=== PATIENT | male | born 1975 | race Caucasian/White ===

== ENCOUNTER 2020-10-29 10:22 | Outpatient (REF) | payer MEDICAID, SELFPAY ==
--- NOTE | ~2020-10-29 | XR_ITS ---
EXAMINATION: XR KNEE, LEFT CLINICAL INFORMATION: Left knee pain. COMPARISON: None TECHNIQUE: Four views of the left knee. FINDINGS: There are severe degenerative changes in the lateral compartment with essentially complete loss of the normal joint space. There is mild subchondral bony sclerosis with associated marginal osteophytosis. Mild degenerative changes are present in the medial and patellofemoral compartments. There is a large joint effusion. No acute bony abnormality is seen. XR/XR knee LT 4V IMPRESSION: Degenerative changes as described most marked in the lateral compartment. Large joint effusion.
== END 2020-10-29 10:23 | disposition home or self-care (01) ==
LOC: HO.XRAY 10:22
PROVIDERS: PCP Internal Medicine Geriatric Medicine; Visit Provider Internal Medicine Geriatric Medicine
DX: M25.462 Effusion, left knee (principal); M25.562 Pain in left knee; R26.89 Other abnormalities of gait and mobility
CPT/HCPCS: 73564

== ENCOUNTER → 2020-12-21 09:16 | Outpatient (BNVA) | payer MEDICAID, SELFPAY | PROVIDERS: PCP Internal Medicine Geriatric Medicine; Visit Provider Orthopaedic Surgery | DX: M17.12 Unilateral primary osteoarthritis, left knee (principal) | CPT/HCPCS: 20610; 99202; J1040 ==

== ENCOUNTER 2021-07-12 11:40 | Emergency (ER) | payer MEDICAID, SELFPAY ==
--- NOTE | ~2021-07-12 | XR_ITS ---
EXAMINATION: XR CHEST CLINICAL INFORMATION: High blood sugar COMPARISON: Previous chest CT February 2014 TECHNIQUE: Frontal view of the chest was obtained. FINDINGS: No significant abnormality is noted involving the heart, lungs, mediastinum, bony thorax or soft tissues. XR/XR chest 1V IMPRESSION: Unremarkable examination.
[2021-07-12 12:21] VITALS: BP 126/76; PULSE 86; RESP 18; TEMP 36.3; O2SAT 95; BMI 31.8
[2021-07-12 12:39] LABS: Glucose, Whole Blood > 600 mg/dL (60-115)
[2021-07-12 12:39] LABS: Glucose, Whole Blood > 600 mg/dL (60-115)
[2021-07-12] MEDS: 0.9 % Sodium Chloride 1,000 ML 999 ML IVCONT ×2 (13:49→14:24)
[2021-07-12 13:53] LABS: MANUAL DIFF FLAG NO
[2021-07-12 13:57] LABS: Basophils Percent Auto 0.2 % (0-2); Eosinophils Percent Auto 0.2 % (0-4); Hematocrit 38.9 % (42-52); Imm Gran Abs Auto 0.01 X10*3/uL (0.00-0.03); Imm Gran Pct Auto 0.2 % (0.0-0.4); Lymphocytes Absolute Auto 1.5 X10*3/uL (1.2-4.9); Lymphocytes Percent Auto 34.1 % (20-40); Mean Corpuscular HGB Conc 33.4 g/dl (31.0-36.0); Mean Corpuscular Hemoglobin 28.3 pg (27.0-33.0); Mean Corpuscular Volume 84.7 fL (80-98); Monocytes Absolute Auto 0.3 X10*3/uL (0.1-1.2); Monocytes Percent Auto 7.1 % (2-11); Neutrophils Absolute Auto 2.6 X10*3/uL (2.0-8.3); Neutrophils Percent Auto 58.2 % (45-73); Red Blood Count 4.59 X10*6/uL (4.60-5.80); Red Cell Distribution Width 14.4 % (11.0-16.0); White Blood Count 4.5 X10*3/uL (4.8-10.8)
[2021-07-12 14:22] LABS: Alanine Aminotransferase 112 U/L (0-40); Albumin Level 4.3 g/dL (3.5-5.0); Alkaline Phosphatase 215 U/L (39-117); Anion Gap 18 (12-20); Aspartate Amino Transferase 56 U/L (5-37); Bilirubin Direct 0.4 mg/dL (0.0-0.5); Bilirubin Total 1.1 mg/dL (0.0-1.0); Blood Urea Nitrogen 13 mg/dL (9-16); Calcium 9.7 mg/dL (8.4-10.2); Carbon Dioxide 29 mmol/L (22-29); Chloride 86 mmol/L (96-108); Creatinine Clr Calc Pharmacy 70.5; Estimated Glomerular Filt Rate 49; Glucose Random 664 mg/dL (60-115); Lipase 23 U/L (8-78); Potassium 4.1 mmol/L (3.3-5.1); Sodium 129 mmol/L (135-145); Total Protein 8.5 g/dL (6.5-8.0)
[2021-07-12] MEDS: Insulin Regular, Human 100 UNIT/ML 3 ML VIAL 10 UNIT IVPUSH ×2 (14:25→15:08)
[2021-07-12 14:28] LABS: Mean Platelet Volume 10.8 fL (9.4-12.4); Platelet Count 76 X10*3/uL (160-400)
[2021-07-12 14:30] VITALS: BP 126/80; PULSE 80; RESP 16; O2SAT 96
[2021-07-12 14:57] LABS: Glucose, Whole Blood 448 mg/dL (60-115)
--- NOTE | 2021-07-12 15:02 | ED.GENADULT ---
HPI - General Adult General Chief complaint: General Medical Stated complaint: hbs Time Seen by Provider: 07/12/21 13:28 Source: patient Mode of arrival: ambulatory Limitations: no limitations History of Present Illness HPI narrative: 46-year-old male walked into the emergency department from PCP's office for evaluation of high blood sugar. Patient is known type 2 diabetes not compliant with his medication for sometimes, been evaluated by his PCP for generalized weakness, polyuria, polydipsia, blurry vision. Patient found to have high blood sugar at the PCPs office and sent to the ED for further evaluation. Patient otherwise decline fever, chills, chest pain, abdominal pain, nausea, or vomiting. Patient admitted that he is not compliant with his medication, unaware of his medication. Related Data Home Medications Medication Instructions Recorded Confirmed buprenorphine 4 mg-naloxone 1 mg 1 film SUBLINGUAL DAILY 12/21/20 sublingual film (Suboxone) Previous Rx's Medication Instructions Recorded metformin 1,000 mg tablet 1,000 mg PO BID #60 tab 07/12/21 Allergies Allergy/AdvReac Type Severity Reaction Status Date / Time No Known Allergies Allergy Verified 07/12/21 12:20 Review of Systems Review of Systems: All other systems are reviewed and are negative Constitutional: Reports as per HPI and Reports no additional constitutional complaints Eyes: Reports as per HPI and Reports no additional eye complaints Reports system reviewed and no additional complaints, except as documented Cardiovascular: Reports as per HPI and Reports no additional cardiovascular complaints Respiratory: Reports as per HPI and Reports no additional respiratory complaints Gastrointestinal: Reports as per HPI and Reports no additional gastrointestinal complaints Genitourinary: Reports no additional female genitourinary complaints Musculoskeletal: Reports no additional musculoskeletal complaints Skin/Breast: Reports system reviewed and no additional complaints, except as docu Psychiatric: Reports no additional psychiatric complaints Endocrine: Reports no additional endocrine complaints Hematologic/Lymphatic: Reports no additional hematologic/lymphatic complaints Allergic/Immunologic: Reports no additional allergic/immunologic complaints Reports system reviewed and no additional complaints, except as documented and Reports Abnormal speech present [facility] Social History Social History Advance Directives: No Current occupational status: unemployed Current occupation: right handed. Physical Exam Vital Signs: Vital Signs: Last Vital Signs Temp 97.3 F 07/12/21 12:21 Pulse 80 07/12/21 14:30 Resp 16 07/12/21 14:30 BP 126/80 07/12/21 14:30 Pulse Ox 96 07/12/21 14:30 Body Mass Index 31.8 Vital signs have been reviewed as appeared to be correct. Blood pressure normal. Heart rate normal. Respiration rate normal. Temperature normal. Oxygen saturation normal. Appearance: Alert. Oriented X3. No acute distress. Head: Normal external exam. Normocephalic. Atraumatic. No Nj signs noted. No raccoon eyes noted Eyes: PERRLA. EOMI. Conjunctiva and sclera normal. Eyelids normal. ENT: TM's Normal. Pharynx normal. Uvula midline. Dry mucous membranes. No trismus noted. No drooling noted. No muffled voice noted. Neck: Normal inspection. Neck supple. FROM. No adenopathy. Thyroid Normal. No meningeal signs. No neck mass noted. CVS: Normal heart rate and rhythm. Heart sound normal. No murmurs noted. Pulses normal throughout. Respiratory: No respiratory distress. Painless inspiration. Breath sounds normal. No wheezes/rales/rhonchi noted. Chest nontender. No accessory muscle usage noted or decreased air movement noted. Abdomen: Soft and nontender. Bowel sounds normal in all 4 quadrants. No distention noted. No organomegaly noted. No visible injury noted. Back: No CVA tenderness. Full range of motion noted. Skin: Skin warm and dry. Normal skin color. Normal skin turgor. No rashes/lesions/lacerations noted. Extremities: No lower extremity edema. Extremities exhibit normal range of motion. Extremities nontender. Neuro: Oriented X 3. Cranial nerve exam: II-XII are grossly intact No motor deficit. No sensory deficit. Reflexes normal. Course Course Course Narrative: Assessment and plan. 46-year-old male with known type 2 diabetes who is not compliant with his medication, came from his PCP office for hyperglycemia, no sign of infection, will start the patient on metformin 1000 mg b.i.d., patient will need further outpatient evaluation by his PCP. The patient was instructed to drink plenty of fluid and take his diabetes medication. Reevaluation(s) Reevaluation #1: BS is 306 after hydration and insulin. plan is to d/c, start on metformin, follow up with pcp. Time: 15:50 Medical Decision Making Lab Data Lab results reviewed: Yes I reviewed the patient's lab results. Result diagrams: 07/12/21 13:48 07/12/21 13:48 Labs: Lab Results 07/12/21 07/12/21 07/12/21 Range/Units 12:27 12:30 13:48 WBC 4.5 L (4.8-10.8) X10*3/uL RBC 4.59 L (4.60-5.80) X10*6/uL Hgb 13.0 L (14.0-18.0) g/dl Hct 38.9 L (42-52) % MCV 84.7 (80-98) fL MCH 28.3 (27.0-33.0) pg MCHC 33.4 (31.0-36.0) g/dl RDW 14.4 (11.0-16.0) % Plt Count 76 L (160-400) X10*3/uL MPV 10.8 (9.4-12.4) fL Immature Gran % (Auto) 0.2 (0.0-0.4) % Neut % (Auto) 58.2 (45-73) % Lymph % (Auto) 34.1 (20-40) % [place] % (Auto) 7.1 (2-11) % Eos % (Auto) 0.2 (0-4) % Baso % (Auto) 0.2 (0-2) % Lymph # (Auto) 1.5 (1.2-4.9) X10*3/uL [place] # (Auto) 0.3 (0.1-1.2) X10*3/uL Eos # (Auto) 0.0 (0.0-0.4) X10*3/uL Baso # (Auto) 0.0 (0.0-0.2) X10*3/uL Abs Immat Gran (auto) 0.01 (0.00-0.03) X10*3/uL Absolute Neuts (auto) 2.6 (2.0-8.3) X10*3/uL Absolute Nucleated RBC 0.000 (0.0-0.012) X10*3/uL Nucleated RBC % (auto) 0.0 (0.0-0.2) /100WBC Sodium (135-145) mmol/L Potassium (3.3-5.1) mmol/L Chloride (96-108) mmol/L Carbon Dioxide (22-29) mmol/L Anion Gap (12-20) BUN (9-16) mg/dL Creatinine (0.5-1.4) mg/dL Estim Creat Clear Calc Estimated GFR POC Glucose > 600 H* > 600 H* (60-115) mg/dL Random Glucose (60-115) mg/dL Calcium (8.4-10.2) mg/dL Total Bilirubin (0.0-1.0) mg/dL Direct Bilirubin (0.0-0.5) mg/dL AST (5-37) U/L ALT (0-40) U/L Alkaline Phosphatase (39-117) U/L Total Protein (6.5-8.0) g/dL Albumin (3.5-5.0) g/dL Lipase (8-78) U/L Urine Color Urine Appearance Urine pH (5.0-8.0) Ur Specific [place] (1.005-1.025) Urine Protein (NEG-TRACE) MG/DL Urine Glucose (UA) (NEG) MG/DL Urine Ketones (NEG) MG/DL Urine Blood (NEG) Urine Nitrite (NEG) Ur Leukocyte Esterase (NEG) 07/12/21 07/12/21 07/12/21 Range/Units 13:48 14:50 15:31 WBC (4.8-10.8) X10*3/uL RBC (4.60-5.80) X10*6/uL Hgb (14.0-18.0) g/dl Hct (42-52) % MCV (80-98) fL MCH (27.0-33.0) pg MCHC (31.0-36.0) g/dl RDW (11.0-16.0) % Plt Count (160-400) X10*3/uL MPV (9.4-12.4) fL Immature Gran % (Auto) (0.0-0.4) % Neut % (Auto) (45-73) % Lymph % (Auto) (20-40) % [place] % (Auto) (2-11) % Eos % (Auto) (0-4) % Baso % (Auto) (0-2) % Lymph # (Auto) (1.2-4.9) X10*3/uL [place] # (Auto) (0.1-1.2) X10*3/uL Eos # (Auto) (0.0-0.4) X10*3/uL Baso # (Auto) (0.0-0.2) X10*3/uL Abs Immat Gran (auto) (0.00-0.03) X10*3/uL Absolute Neuts (auto) (2.0-8.3) X10*3/uL Absolute Nucleated RBC (0.0-0.012) X10*3/uL Nucleated RBC % (auto) (0.0-0.2) /100WBC Sodium 129 L (135-145) mmol/L Potassium 4.1 (3.3-5.1) mmol/L Chloride 86 L (96-108) mmol/L Carbon Dioxide 29 (22-29) mmol/L Anion Gap 18 (12-20) BUN 13 (9-16) mg/dL Creatinine 1.54 H (0.5-1.4) mg/dL Estim Creat Clear Calc 70.5 Estimated GFR 49 POC Glucose 448 H* (60-115) mg/dL Random Glucose 664 H* (60-115) mg/dL Calcium 9.7 (8.4-10.2) mg/dL Total Bilirubin 1.1 H (0.0-1.0) mg/dL Direct Bilirubin 0.4 (0.0-0.5) mg/dL AST 56 H (5-37) U/L ALT 112 H (0-40) U/L Alkaline Phosphatase 215 H (39-117) U/L Total Protein 8.5 H (6.5-8.0) g/dL Albumin 4.3 (3.5-5.0) g/dL Lipase 23 (8-78) U/L Urine Color YELLOW Urine Appearance CLEAR Urine pH 5.5 (5.0-8.0) Ur Specific [place] 1.010 (1.005-1.025) Urine Protein NEG (NEG-TRACE) MG/DL Urine Glucose (UA) >=1000 H (NEG) MG/DL Urine Ketones 40 (NEG) MG/DL Urine Blood NEG (NEG) Urine Nitrite NEG (NEG) Ur Leukocyte Esterase NEG (NEG) 07/12/21 Range/Units 15:44 WBC (4.8-10.8) X10*3/uL RBC (4.60-5.80) X10*6/uL Hgb (14.0-18.0) g/dl Hct (42-52) % MCV (80-98) fL MCH (27.0-33.0) pg MCHC (31.0-36.0) g/dl RDW (11.0-16.0) % Plt Count (160-400) X10*3/uL MPV (9.4-12.4) fL Immature Gran % (Auto) (0.0-0.4) % Neut % (Auto) (45-73) % Lymph % (Auto) (20-40) % [place] % (Auto) (2-11) % Eos % (Auto) (0-4) % Baso % (Auto) (0-2) % Lymph # (Auto) (1.2-4.9) X10*3/uL [place] # (Auto) (0.1-1.2) X10*3/uL Eos # (Auto) (0.0-0.4) X10*3/uL Baso # (Auto) (0.0-0.2) X10*3/uL Abs Immat Gran (auto) (0.00-0.03) X10*3/uL Absolute Neuts (auto) (2.0-8.3) X10*3/uL Absolute Nucleated RBC (0.0-0.012) X10*3/uL Nucleated RBC % (auto) (0.0-0.2) /100WBC Sodium (135-145) mmol/L Potassium (3.3-5.1) mmol/L Chloride (96-108) mmol/L Carbon Dioxide (22-29) mmol/L Anion Gap (12-20) BUN (9-16) mg/dL Creatinine (0.5-1.4) mg/dL Estim Creat Clear Calc Estimated GFR POC Glucose 307 H (60-115) mg/dL Random Glucose (60-115) mg/dL Calcium (8.4-10.2) mg/dL Total Bilirubin (0.0-1.0) mg/dL Direct Bilirubin (0.0-0.5) mg/dL AST (5-37) U/L ALT (0-40) U/L Alkaline Phosphatase (39-117) U/L Total Protein (6.5-8.0) g/dL Albumin (3.5-5.0) g/dL Lipase (8-78) U/L Urine Color Urine Appearance Urine pH (5.0-8.0) Ur Specific [place] (1.005-1.025) Urine Protein (NEG-TRACE) MG/DL Urine Glucose (UA) (NEG) MG/DL Urine Ketones (NEG) MG/DL Urine Blood (NEG) Urine Nitrite (NEG) Ur Leukocyte Esterase (NEG) Discharge Plan Discharge Clinical Impression: Hyperglycemia due to type 2 diabetes mellitus Qualifiers: Diabetes mellitus superintendent terminal insulin use: without longterm use Qualified Code(s): E11.65 - Type 2 diabetes mellitus with hyperglycemia Patient Disposition: Home, Self-Care Instructions: Diabetic Hyperglycemia (ED) Prescriptions: New metformin 1,000 mg tablet 1,000 mg PO BID Qty: 60 RF: 0 Referrals: Name,MD Nima [Primary Care Provider] - 2 days
[2021-07-12 15:37] LABS: Appearance Urine CLEAR; Color Urine YELLOW; Glucose Urine UA >=1000 MG/DL (NEG); Leukocyte Esterase Urine NEG (NEG); Nitrite Urine NEG (NEG); PH 5.5 (5.0-8.0); Urine Blood NEG (NEG); Urine Ketones 40 MG/DL (NEG); Urine Protein NEG (NEG-TRACE)
[2021-07-12 15:49] LABS: Glucose, Whole Blood 307 mg/dL (60-115)
[2021-07-12 15:52] LABS: RBC Urine 0 /HPF (0); WBC Urine 0 /HPF (0-4)
== END 2021-07-12 15:57 | disposition home or self-care (01) ==
PROVIDERS: Emergency Provider Emergency Medicine; PCP Internal Medicine Geriatric Medicine
DX: E11.65 Type 2 diabetes mellitus with hyperglycemia (principal); Z91.14 Patient's other noncompliance with medication regimen
CPT/HCPCS: 36415; 71045; 80048; 80076; 81001; 82947; 83690; 85025; 96361; 96374; 96376; 99284

== ENCOUNTER 2021-08-11 09:30 | Emergency (ER) | payer MEDICAID, SELFPAY ==
[2021-08-11 09:38] VITALS: BP 128/83; PULSE 80; RESP 16; TEMP 36.6; O2SAT 97; BMI 32.2
--- NOTE | 2021-08-11 11:08 | ED_ITS ---
HPI - General Adult General Chief complaint: General Medical Stated complaint: high blood sugar Time Seen by Provider: 08/11/21 11:15 Source: patient Mode of arrival: ambulatory Limitations: no limitations History of Present Illness HPI narrative: 46-year-old male presents to ED for hyperglycemia. Patient states history of diabetes only taking metformin. Patient states for the past 2 days glucose has been over 500 with blurry vision and this morning it was over 490. Patient states polydipsia with polyuria. Patient denies any chest pain, shortness of breath, weakness, or dizziness. Patient states presently he has a yeast infection. Patient states she is compliant with his meds which is only metformin. Related Data Home Medications Medication Instructions Recorded Confirmed buprenorphine 4 mg-naloxone 1 mg 1 film SUBLINGUAL DAILY 12/21/20 sublingual film (Suboxone) Previous Rx's Medication Instructions Recorded metformin 1,000 mg tablet 1,000 mg PO BID #60 tab 07/12/21 metformin 1,000 mg tablet 1,000 mg PO BID 5 Days #10 tab 08/11/21 nitrofurantoin 100 mg PO Q12H 7 Days #14 cap 08/11/21 monohydrate/macrocrystals 100 mg capsule (Macrobid) Allergies Allergy/AdvReac Type Severity Reaction Status Date / Time No Known Allergies Allergy Verified 07/12/21 12:20 Review of Systems Review of Systems: Yes all other systems are reviewed and are negative Constitutional: Constitutional: Reports as per HPI and Reports no additional constitutional complaints Eyes: Eyes: Reports as per HPI and Reports no additional eye complaints Comments: Blurry vision ENT: Reports system reviewed and no additional complaints, except as documented and Reports as per HPI Cardiovascular: Cardiovascular: Reports as per HPI and Reports no additional cardiovascular complaints Respiratory: Respiratory: Reports as per HPI and Reports no additional respiratory complaints Gastrointestinal: Gastrointestinal: Reports as per HPI and Reports no additional gastrointestinal complaints Genitourinary: Genitourinary: Reports no additional male genitourinary complaints and Reports as per HPI Musculoskeletal: Musculoskeletal: Reports no additional musculoskeletal complaints and Reports as per HPI Integumentary/Breasts: Skin/Breast: Reports system reviewed and no additional complaints, except as docu and Reports as per HPI Neurologic: Reports system reviewed and no additional complaints, except as documented and Reports as per HPI Psychiatric: Psychiatric: Reports no additional psychiatric complaints and Reports as per HPI [facility] Past Medical History Medical History (Updated 08/11/21 @ 13:59 by MINGO Angela) Diabetes Social History Social History Advance Directives: No Current occupational status: unemployed Current occupation: right handed. Physical Exam Vital Signs: Vital Signs: Last Vital Signs Temp 98 F 08/11/21 09:38 Pulse 80 08/11/21 09:38 Resp 16 08/11/21 09:38 BP 128/83 08/11/21 09:38 Pulse Ox 97 08/11/21 09:38 Body Mass Index 32.2 Const: General: cooperative, healthy appearing, comfortable, no acute distress, well developed, alert, awake and Physically active; No acute distress Orientation/consciousness: patient oriented x3 HENMT: Head: Yes normal to inspection, Yes No palpable skull fracture present, Yes normocephalic, Yes atraumatic, No abrasion, No Acrocyanosis present, No Nj's sign, No contusion, No cranial bruits, No hematoma, No laceration, No occipital foramen tenderness, No palpable skull fracture, No raccoon eyes, No scalp lesion, No scalp tenderness, No Temporal artery tenderness present and No periorbital ecchymosis Eyes: General: appearance normal, both eyes and all related structures Neck: Neck: Yes normal visual inspection, Yes full ROM, Yes no lymphadenopathy, Yes no meningeal signs, Yes trachea midline, Yes supple, No anterior neck swelling and No tender Chest: Chest palpation & inspection: normal inspection of the chest and normal palpation of entire chest wall Resp: Effort & Inspection: normal respiratory effort and able to speak in complete sentences Auscultation: clear to auscultation bilaterally Cardio: Jugular venous distension: no JVD Heart sounds: S1 normal heart sound present and S2 normal heart sound present GI: Inspection: Yes normal to inspection and No abdominal wall ecchymosis Palpation (GI): Soft to palpation, not firm, nontender, no guarding and not rigid : General: No CVA tenderness and Yes no CVA tenderness Back/Spine/Pelvis: Back: no CVA tenderness, No CVA tenderness and No back tenderness Skin: General skin exam: no rashes or lesions noted and elasticity normal Neuro: General: patient oriented x3, no meningeal signs and CN's II-XI intact bilaterally Cranial nerves: Yes CN's II-XII intact bilaterally Extrem: General: Yes normal to inspection and Yes full ROM Psych: Appearance: grossly normal, well kempt and not disheveled Course Course Course Narrative: Patient will have labs drawn. Repeats p.o.C is 390 will order fluids. Will do labs to see patients in DKA. Patient is not any distress Reevaluation(s) Reevaluation #1: Patient is not in DKA. Patient's UA shows UTI. Patient is glucose resolved without any insulin. Hyperglycemia improved with fluids. 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 Or his primary care provider could add new meds. Patient is safe for discharge Time: 13:55 Medical Decision Making MDM Narrative Medical decision making narrative: Hyperglycemia Lab Data Result diagrams: 08/11/21 11:31 08/11/21 11:31 Labs: Lab Results 08/11/21 08/11/21 08/11/21 Range/Units 11:09 11:31 11:31 WBC 3.7 L (4.8-10.8) X10*3/uL RBC 4.45 L (4.60-5.80) X10*6/uL Hgb 12.9 L (14.0-18.0) g/dl Hct 38.0 L (42.0-52.0) % MCV 85.4 (80.0-98.0) fL MCH 29.0 (27.0-33.0) pg MCHC 33.9 (31.0-36.0) g/dl RDW 12.9 (11.0-16.0) % Plt Count 79 L (160-400) X10*3/uL MPV 11.2 (9.4-12.4) fL Immature Gran % (Auto) 0.3 (0.0-0.4) % Neut % (Auto) 58.0 (45-73) % Lymph % (Auto) 33.3 (20-40) % [place] % (Auto) 7.3 (2-11) % Eos % (Auto) 0.8 (0-4) % Baso % (Auto) 0.3 (0-2) % Lymph # (Auto) 1.2 (1.2-4.9) X10*3/uL [place] # (Auto) 0.3 (0.1-1.2) X10*3/uL Eos # (Auto) 0.0 (0.0-0.4) X10*3/uL Baso # (Auto) 0.0 (0.0-0.2) X10*3/uL Abs Immat Gran (auto) 0.01 (0.00-0.03) X10*3/uL Absolute Neuts (auto) 2.1 (2.0-8.3) x10*3/uL Absolute Nucleated RBC 0.000 (0.0-0.012) X10*3/uL Nucleated RBC % (auto) 0.0 (0.0-0.2) /100WBC Sodium 135 (135-145) mmol/L Potassium 4.5 (3.3-5.1) mmol/L Chloride 101 (96-108) mmol/L Carbon Dioxide 24 (22-29) mmol/L Anion Gap 15 (12-20) BUN 14 (9-16) mg/dL Creatinine 0.95 (0.5-1.4) mg/dL Estim Creat Clear Calc 115.0 Estimated GFR > 60 POC Glucose 340 H (60-115) mg/dL Random Glucose 376 H* (60-115) mg/dL Calcium 9.3 (8.4-10.2) mg/dL Total Bilirubin 0.7 (0.0-1.0) mg/dL AST 50 H (5-37) U/L ALT 98 H (0-40) U/L Alkaline Phosphatase 162 H D (39-117) U/L Total Protein 8.4 H (6.5-8.0) g/dL Albumin 4.2 (3.5-5.0) g/dL Urine Color Urine Appearance Urine pH (5.0-8.0) Ur Specific [place] (1.005-1.025) Urine Protein (NEG-TRACE) MG/DL Urine Glucose (UA) (NEG) MG/DL Urine Ketones (NEG) MG/DL Urine Blood (NEG) Urine Nitrite (NEG) Ur Leukocyte Esterase (NEG) Urine RBC (0) /HPF Urine WBC (0-4) /HPF Ur Squamous Epith Cells /LPF Urine Bacteria /LPF Acetone, Qual Negative (Negative) 08/11/21 08/11/21 Range/Units 12:11 13:29 WBC (4.8-10.8) X10*3/uL RBC (4.60-5.80) X10*6/uL Hgb (14.0-18.0) g/dl Hct (42.0-52.0) % MCV (80.0-98.0) fL MCH (27.0-33.0) pg MCHC (31.0-36.0) g/dl RDW (11.0-16.0) % Plt Count (160-400) X10*3/uL MPV (9.4-12.4) fL Immature Gran % (Auto) (0.0-0.4) % Neut % (Auto) (45-73) % Lymph % (Auto) (20-40) % [place] % (Auto) (2-11) % Eos % (Auto) (0-4) % Baso % (Auto) (0-2) % Lymph # (Auto) (1.2-4.9) X10*3/uL [place] # (Auto) (0.1-1.2) X10*3/uL Eos # (Auto) (0.0-0.4) X10*3/uL Baso # (Auto) (0.0-0.2) X10*3/uL Abs Immat Gran (auto) (0.00-0.03) X10*3/uL Absolute Neuts (auto) (2.0-8.3) x10*3/uL Absolute Nucleated RBC (0.0-0.012) X10*3/uL Nucleated RBC % (auto) (0.0-0.2) /100WBC Sodium (135-145) mmol/L Potassium (3.3-5.1) mmol/L Chloride (96-108) mmol/L Carbon Dioxide (22-29) mmol/L Anion Gap (12-20) BUN (9-16) mg/dL Creatinine (0.5-1.4) mg/dL Estim Creat Clear Calc Estimated GFR POC Glucose 289 H (60-115) mg/dL Random Glucose (60-115) mg/dL Calcium (8.4-10.2) mg/dL Total Bilirubin (0.0-1.0) mg/dL AST (5-37) U/L ALT (0-40) U/L Alkaline Phosphatase (39-117) U/L Total Protein (6.5-8.0) g/dL Albumin (3.5-5.0) g/dL Urine Color YELLOW Urine Appearance HAZY Urine pH 5.5 (5.0-8.0) Ur Specific [place] 1.025 (1.005-1.025) Urine Protein TRACE (NEG-TRACE) MG/DL Urine Glucose (UA) >=1000 H (NEG) MG/DL Urine Ketones NEG (NEG) MG/DL Urine Blood TRACE (NEG) Urine Nitrite NEG (NEG) Ur Leukocyte Esterase NEG (NEG) Urine RBC 5-9 H (0) /HPF Urine WBC 10-14 H (0-4) /HPF Ur Squamous Epith Cells 1+ /LPF Urine Bacteria 1+ /LPF Acetone, Qual (Negative) Discharge Plan Discharge Clinical Impression: Hyperglycemia due to type 2 diabetes mellitus, Acute UTI Patient Disposition: Home, Self-Care Instructions: Urinary Tract Infection in Men (ED), Diabetic Hyperglycemia (ED) Additional Instructions: Please follow-up with your primary care provider for adjustment of the medication or referral to endocrinology. Her urine shows urinary tract infection. She will be discharged with antibiotics. Return to the ED for any abdominal pain, nausea, vomiting, fever, chills, hematuria, flank pain, increased thirst, increased urinary frequency, chest pain, shortness of breath, dizziness, or any other concerning symptoms. Prescriptions: New nitrofurantoin monohyd/m-cryst [Macrobid] 100 mg capsule 100 mg PO Q12H 7 Days Qty: 14 RF: 0 metformin 1,000 mg tablet 1,000 mg PO BID 5 Days Qty: 10 RF: 0 No Action metformin 1,000 mg tablet 1,000 mg PO BID Qty: 60 RF: 0 Stand Alone Forms: Work/School Release Discharge Date/Time: 08/11/21 14:15 Print Language: Monegasque
[2021-08-11 11:13] LABS: Glucose, Whole Blood 340 mg/dL (60-115)
[2021-08-11] MEDS: 0.9 % Sodium Chloride 1,000 ML 999 ML IV ×2 (11:33)
[2021-08-11 11:37] LABS: MANUAL DIFF FLAG NO
[2021-08-11 11:40] LABS: Basophils Percent Auto 0.3 % (0-2); Eosinophils Percent Auto 0.8 % (0-4); Hemoglobin 12.9 g/dl (14.0-18.0); Imm Gran Abs Auto 0.01 X10*3/uL (0.00-0.03); Imm Gran Pct Auto 0.3 % (0.0-0.4); Lymphocytes Absolute Auto 1.2 X10*3/uL (1.2-4.9); Lymphocytes Percent Auto 33.3 % (20-40); Mean Corpuscular HGB Conc 33.9 g/dl (31.0-36.0); Mean Corpuscular Volume 85.4 fL (80.0-98.0); Mean Platelet Volume 11.2 fL (9.4-12.4); Monocytes Absolute Auto 0.3 X10*3/uL (0.1-1.2); Monocytes Percent Auto 7.3 % (2-11); Neutrophils Absolute Auto 2.1 x10*3/uL (2.0-8.3); Platelet Count 79 X10*3/uL (160-400); Red Blood Count 4.45 X10*6/uL (4.60-5.80); Red Cell Distribution Width 12.9 % (11.0-16.0); White Blood Count 3.7 X10*3/uL (4.8-10.8)
[2021-08-11 11:57] LABS: Alanine Aminotransferase 98 U/L (0-40); Albumin Level 4.2 g/dL (3.5-5.0); Alkaline Phosphatase 162 U/L (39-117); Anion Gap 15 (12-20); Aspartate Amino Transferase 50 U/L (5-37); Bilirubin Total 0.7 mg/dL (0.0-1.0); Blood Urea Nitrogen 14 mg/dL (9-16); Calcium 9.3 mg/dL (8.4-10.2); Carbon Dioxide 24 mmol/L (22-29); Chloride 101 mmol/L (96-108); Estimated Glomerular Filt Rate > 60; Glucose Random 376 mg/dL (60-115); Potassium 4.5 mmol/L (3.3-5.1); Sodium 135 mmol/L (135-145); Total Protein 8.4 g/dL (6.5-8.0)
[2021-08-11 12:28] LABS: Acetone, serum QL Negative (Negative)
[2021-08-11 12:30] LABS: Appearance Urine HAZY; Color Urine YELLOW; Glucose Urine UA >=1000 MG/DL (NEG); Leukocyte Esterase Urine NEG (NEG); Nitrite Urine NEG (NEG); PH 5.5 (5.0-8.0); Specific Gravity - Urine 1.025 (1.005-1.025); UACC Culture Trigger NO; Urine Blood TRACE (NEG); Urine Ketones NEG (NEG); Urine Protein TRACE MG/DL (NEG-TRACE)
[2021-08-11 13:04] LABS: Bacteria Urine 1+ /LPF; Squamous Epithelial Cell Urine 1+ /LPF; UACC CULT YES
[2021-08-11 13:33] LABS: Glucose, Whole Blood 289 mg/dL (60-115)
== END 2021-08-11 14:15 | disposition home or self-care (01) ==
PROVIDERS: Physician Assistant; Emergency Provider Emergency Medicine; PCP Internal Medicine Geriatric Medicine
DX: E11.65 Type 2 diabetes mellitus with hyperglycemia (principal); N39.0 Urinary tract infection, site not specified
CPT/HCPCS: 36415; 80053; 81001; 82009; 82947; 85025; 87086; 87088; 96360; 99283; 99284

== ENCOUNTER 2021-11-29 11:45 | Emergency (ER) | payer MEDICAID, SELFPAY ==
[2021-11-29 12:01] VITALS: BP 102/59; PULSE 72; RESP 18; TEMP 37; O2SAT 98; BMI 35.5
--- NOTE | 2021-11-29 12:15 | ED.SKABFB ---
HPI - Skin/Abscess/Foreign Bdy General Chief complaint: Skin/Abscess/Foreign Body Stated complaint: abscess Time Seen by Provider: 11/29/21 12:15 Source: patient and family Mode of arrival: ambulatory Limitations: no limitations History of Present Illness HPI narrative: 46 y/o male presenting to the ER with an abscess to the left calf for the last 5 days. He reports the area has been becoming larger and more painful. He thinks he may have gotten bit by a spider but he is not sure. He woke up with the small area of redness and tenderness 5 days ago and has been getting bigger and more painful signs. He has not tried to drain any infection from the area. He denies any fever or chills. He is diabetic and reports his sugars have been well controlled. MD complaint: abscess/boil Onset (ago): day(s) (5) Tetanus up to date: yes Severity: moderate Severity scale (1-10): 6 Quality: aching Pain Consistency: constant Relieving factors: immobilization Exacerbating factors: palpation and movement Context: none Associated symptoms: denies other symptoms Treatments prior to arrival: none Related Data Home Medications Medication Instructions Recorded Confirmed buprenorphine 4 mg-naloxone 1 mg 1 film SUBLINGUAL DAILY 12/21/20 sublingual film (Suboxone) Previous Rx's Medication Instructions Recorded metformin 1,000 mg tablet 1,000 mg PO BID #60 tab 07/12/21 metformin 1,000 mg tablet 1,000 mg PO BID 5 Days #10 tab 08/11/21 nitrofurantoin 100 mg PO Q12H 7 Days #14 cap 08/11/21 monohydrate/macrocrystals 100 mg capsule (Macrobid) cephalexin 500 mg capsule 500 mg PO QID 5 Days #20 cap 11/29/21 doxycycline hyclate 100 mg tablet 100 mg PO BID #10 tab 11/29/21 Allergies Allergy/AdvReac Type Severity Reaction Status Date / Time No Known Allergies Allergy Verified 07/12/21 12:20 Review of Systems Review of Systems: Constitutional: No Fever, No Chills ENT/Mouth: No sore throat Cardiovascular: No Chest Pain, No SOB Gastrointestinal: No Nausea, No Vomiting Musculoskeletal: No joint pain, + Myalgias Skin: + Skin Lesions, No rash Neuro: No Weakness, No Numbness Psych: + Anxiety/Panic, No Depression Heme/Lymph: No Bruising, No Lymphadenopathy PMFSH Past Medical History Medical History (Updated 11/29/21 @ 12:50 by MINGO Haynes) Diabetes Social History Social History Advance Directives: No Advance Directives Information Provided: Yes Current occupational status: unemployed Current occupation: right handed. Physical Exam Vital Signs: Vital Signs: Last Vital Signs Temp 98.6 F 11/29/21 12:01 Pulse 72 11/29/21 12:01 Resp 18 11/29/21 12:01 BP 102/59 L 11/29/21 12:01 Pulse Ox 98 11/29/21 12:01 BMI result Body Mass Index 35.5 Appearance: Alert. Oriented X3. No acute distress. Nontoxic HEENT: normal inspection CVS: Normal heart rate and rhythm. Pulses normal. Respiratory: No respiratory distress. Skin: Skin warm and dry. Normal skin color. Normal skin turgor. No rashes. Extremities: left proximal lower leg with a 3cm ovoid area of swelling, fluctance and tenderness, surrounded by erythema extending to the knee superiorly and mid-calf distally. NV intact disally. No bullseye rash. No calf tenderness or swelling Neuro: Oriented X 3. nonfocal, steady gait Course Course Course Narrative: 46-year-old male presents the ER with worsening abscess to the left calf for the last 5 days. He is unsure cause question spider bite. On examination the area is warm, red, fluctuant, amenable to incision and drainage. Patient is in agreement. Reevaluation(s) Reevaluation #1: I&D performed, mild bleeding afterward. Sterile dressing applied. Wound care discussed with patient and his girlfriend. Will prescribe double coverage antibiotics. Signs and symptoms of worsening infection were discussed. Stable for discharge home with oral antibiotics and outpatient follow-up. Procedures Abscess I/D Site: lower extremity Side (if applicable): left Local Anesthetic: lidocaine 2% Amount of anesthesia used (mL): 2 Technique: incised with blade Sent for culture/gram staining?: No Irrigation: Yes Packing used?: none Complications: pain and bleeding Discharge Plan Discharge Clinical Impression: Abscess of skin or subcutaneous tissue Patient Disposition: Home, Self-Care Instructions: Abscess Incision and Drainage (DC) Additional Instructions: Use warm compresses several times per day to help increase blood flow and promote healing. Take the prescribed antibiotics as directed, complete the entire course. If you develop worsening redness, pain, swelling or any other concerning symptoms call your doctor or come back to the ER for further evaluation. Prescriptions: New cephalexin 500 mg capsule 500 mg PO QID 5 Days Qty: 20 0RF doxycycline hyclate 100 mg tablet 100 mg PO BID Qty: 10 0RF No Action metformin 1,000 mg tablet 1,000 mg PO BID Qty: 60 0RF nitrofurantoin monohyd/m-cryst [Macrobid] 100 mg capsule 100 mg PO Q12H 7 Days Qty: 14 0RF Rx Instructions: must administer with a meal/food metformin 1,000 mg tablet 1,000 mg PO BID 5 Days Qty: 10 0RF Interventions: ED Discharge Assessment Last Done: 11/29/21 13:02 Discharge Date/Time: 11/29/21 13:06
[2021-11-29] MEDS: Lidocaine HCl 2 % MPF 5 ML VIAL INFILTRATI (12:23)
== END 2021-11-29 13:06 | disposition home or self-care (01) ==
PROVIDERS: Emergency Provider Emergency Medicine; PCP Internal Medicine Geriatric Medicine
DX: L02.416 Cutaneous abscess of left lower limb (principal); Z79.899 Other long term (current) drug therapy
CPT/HCPCS: 10060; 99283; 99284

== ENCOUNTER 2021-12-10 20:28 | Emergency (ER) | payer MEDICAID, SELFPAY ==
--- NOTE | 2021-12-10 20:52 | PC.NURSE ---
pt was visable in the ed walking with a unsteady gait, pt is no longer visable in the waiting room at this time.
--- NOTE | 2021-12-10 21:12 | PC.NURSE ---
pt has not returned back to the ed waiting area at this time lwt
== END 2021-12-10 21:52 | disposition left against medical advice (07) ==
PROVIDERS: Emergency Provider Emergency Medicine; PCP Internal Medicine Geriatric Medicine
DX: R26.81 Unsteadiness on feet (principal)

== ENCOUNTER 2021-12-21 11:54 | Emergency (ER) | payer MEDICAID, SELFPAY ==
--- NOTE | ~2021-12-21 | XR_ITS ---
EXAMINATION: XR CHEST CLINICAL INFORMATION: Altered mental status. COMPARISON: Chest radiograph dated from 07/12/2021. TECHNIQUE: 2 views of the chest were obtained. FINDINGS: Normal appearance of the cardiomediastinal silhouette. No focal airspace opacities, pleural effusions or pneumothorax. No acute osseous abnormalities. The visualized upper abdomen is within normal limits. XR/XR chest 2V IMPRESSION: No acute cardiopulmonary findings.
--- NOTE | ~2021-12-21 | CT_ITS ---
EXAMINATION: CT HEAD WITHOUT CONTRAST CLINICAL INFORMATION: Fever. COMPARISON: None. TECHNIQUE: Contiguous axial imaging was performed from the skull base to vertex without intravenous administration of contrast. This CT examination was performed using dose optimization techniques as appropriate, variously including the following: *Automated exposure control *Adjustment of mA and/or kV according to patient size (this includes techniques or standardized protocols for targeted exams where dose is matched to indication/reason for exam; i.e. extremities or head) *Use of iterative reconstruction technique DLP: 745 mGy-cm FINDINGS: There is no evidence of acute intracranial hemorrhage or territorial infarction. No abnormal mass effect or midline shift is seen. Linda to white matter differentiation is well preserved. No extra-axial fluid collections are identified. The ventricles are normal in size. There is no abnormal attenuation within the brain parenchyma. The osseous structures and soft tissues are normal. The mastoid air cells and visualized portions of the paranasal sinuses are well aerated. CT/CT head/brain wo con IMPRESSION: No acute intracranial pathology. It is important to note that evaluation of meningitis, abscess or intracranial masses is very limited in the absence of intravenous contrast. Therefore, if clinically warranted correlation with an MR of the brain with and without intravenous contrast could be obtained.
[2021-12-21 12:00] VITALS: BP 105/66; PULSE 86; RESP 17; TEMP 36.8; O2SAT 96; BMI 31.4
--- NOTE | 2021-12-21 12:04 | PC.NURSE ---
charge and security aware of patient SI
--- NOTE | 2021-12-21 12:30 | PC.NURSE ---
attempt to interview patient results in him being uncooperative and insisting on returning to waiting room, requiring some redirection.
--- NOTE | 2021-12-21 14:13 | ED.PSYCH ---
HPI - Psych General Chief Complaint: Psychiatric Symptoms Stated Complaint: crisis SI Time Seen by Provider: 12/21/21 12:43 Source: patient and family Mode of arrival: ambulatory Limitations: no limitations History of Present Illness HPI Narrative: 46-year-old male with a history of diabetes, bipolar disease, opiate use disorder here with reports of opiate use, suicidal thoughts. Patient is here with . Patient refuses to answer any questions I ask him. tells me that he recently was released from a detox facility. Since being released he has been continuing to use heroin. She is unsure how much he is using. He tells me that he has been telling over last few days since being home he wants to . She denies any suicidal plan that he is mention her. Patient refusing to speak to me in all Related Data Home Medications Medication Instructions Recorded Confirmed buprenorphine 4 mg-naloxone 1 mg 1 film SUBLINGUAL DAILY 12/21/20 12/21/21 sublingual film (Suboxone) Previous Rx's Medication Instructions Recorded metformin 1,000 mg tablet 1,000 mg PO BID #60 tab 07/12/21 metformin 1,000 mg tablet 1,000 mg PO BID 5 Days #10 tab 08/11/21 nitrofurantoin 100 mg PO Q12H 7 Days #14 cap 08/11/21 monohydrate/macrocrystals 100 mg capsule (Macrobid) cephalexin 500 mg capsule 500 mg PO QID 5 Days #20 cap 11/29/21 doxycycline hyclate 100 mg tablet 100 mg PO BID #10 tab 11/29/21 Allergies Allergy/AdvReac Type Severity Reaction Status Date / Time No Known Allergies Allergy Verified 07/12/21 12:20 Review of Systems Review of Systems: Yes Other (Unobtainable as patient refuses to speak to me) [facility] Past Medical History Attestation statement: The following information was validated with the patient. Source: old records reviewed and nursing notes reviewed Medical History Diabetes Social History Social History Advance Directives: No Advance Directives Information Provided: No Current occupational status: unemployed Current occupation: right handed. Physical Exam Vital Signs: Vital Signs: Last Vital Signs Temp 99.4 F 12/21/21 20:53 Pulse 112 H 12/21/21 18:42 Resp 17 12/21/21 12:00 BP 105/60 12/21/21 18:42 Pulse Ox 95 12/21/21 18:42 BMI result Body Mass Index 31.4 Const: Other: Alert agitated Orientation/consciousness: patient oriented x3 Limitations: no limitations HEENT: Head: Yes normal to inspection Ears: hearing grossly normal bilaterally General nose exam: Normal external nose present Face and sinus: Yes normal facial exam Mouth: Normal oral and palatal mucosa present Throat: Yes posterior oropharynx normal Eyes: General: appearance normal, both eyes and all related structures Neck: Neck: Yes normal visual inspection Chest: Chest palpation & inspection: normal inspection of the chest Resp: Effort & Inspection: normal respiratory effort Skin: General skin exam: no rashes or lesions noted Neuro: Other: Refusing to let me examine him General: patient oriented x3 and moves all extremities Gait exam (Neuro): Normal gait present Extrem: General: Yes normal to inspection Course Course Course Narrative: 46-year-old male here with who is concerned the patient has been using heroin and making suicidal statements at home. Patient refusing to let me examine him. Patient refusing to speak to me. Will check toxicology, COVID screen. Will obtain a crisis consultation [id number]-nursing tells me the patient has become increasingly agitated. He appears to be confused. Patient has been tracing things on the wall. He is attempting to use the TV remote as a cellphone. Nursing spoke to the he has no history of underlying alcohol abuse. He does have history of polysubstance abuse and his toxicology is positive for benzos, opiates including fentanyl and cocaine. There is a remote history in the chart of bipolar disease but the cannot recall any details about this. She tells me he has been agitated the last few days and she has seen him but she did not notice any confusion. Nursing tells me the patient has a temperature of a 100.6 degrees The patient has resisted all care to this point. His COVID test is negative. Nursing staff has attempted to obtain lab work but he has declined this. He was offered oral medications to help him relax but he declined this. At this point we need to rule out underlying medical cause of his altered mental status, agitation and fever. This is from viral infection. Patient has history of IV drug abuse. He has no complaints but is resistive to me performing any exam on him. I spoke to Dr Mauro. At this time we need labs including blood cultures, lactic acid, UA, flu testing, CT head. May need additional w/u. I spoke to nursing staff. Patient requires IM medications for care. [id number]-patient did accept oral medications for procedure. His temperature improved without intervention. His labs show no leukocytosis or shift. He has chronic thrombocytopenia unchanged from previous. His lactic acid is negative. UA shows no signs of infection. Flu and COVID testing are negative. CT head shows no acute intracranial abnormality. Meninigitis is less likely. Consider viral infection. I spoke again to Dr Mauro. He has accepted care of the patient. Requested add on inflammatory markers, CXR. He will follow the patient and assume care. [facility] - Psych Medical Records Attestation: I reviewed the patient's medical records. Lab Data Attestation: I reviewed the patient's lab results. Result diagrams: 12/21/21 19:16 12/21/21 19:16 Labs: Lab Results 12/21/21 12/21/21 12/21/21 Range/Units 15:31 17:33 17:41 WBC (4.8-10.8) X10*3/uL RBC (4.60-5.80) X10*6/uL Hgb (14.0-18.0) g/dl Hct (42.0-52.0) % MCV (80.0-98.0) fL MCH (27.0-33.0) pg MCHC (31.0-36.0) g/dl RDW (11.0-16.0) % Plt Count (160-400) X10*3/uL MPV (9.4-12.4) fL Immature Gran % (Auto) (0.0-0.4) % Neut % (Auto) (45-73) % Lymph % (Auto) (20-40) % [place] % (Auto) (2-11) % Eos % (Auto) (0-4) % Baso % (Auto) (0-2) % Lymph # (Auto) (1.2-4.9) X10*3/uL [place] # (Auto) (0.1-1.2) X10*3/uL Eos # (Auto) (0.0-0.4) X10*3/uL Baso # (Auto) (0.0-0.2) X10*3/uL Abs Immat Gran (auto) (0.00-0.03) X10*3/uL Absolute Neuts (auto) (2.0-8.3) x10*3/uL Absolute Nucleated RBC (0.0-0.012) X10*3/uL Nucleated RBC % (auto) (0.0-0.2) /100WBC Smear Tech's Comments Sodium (135-145) mmol/L Potassium (3.3-5.1) mmol/L Chloride (96-108) mmol/L Carbon Dioxide (22-29) mmol/L Anion Gap (12-20) BUN (9-16) mg/dL Creatinine (0.5-1.4) mg/dL Estim Creat Clear Calc Estimated GFR Random Glucose (60-115) mg/dL Lactic Acid (0.5-2.0) mmol/L Calcium (8.4-10.2) mg/dL Total Bilirubin (0.0-1.0) mg/dL Direct Bilirubin (0.0-0.5) mg/dL AST (5-37) U/L ALT (0-40) U/L Alkaline Phosphatase (39-117) U/L Total Creatine Kinase (38-174) U/L Total Protein (6.5-8.0) g/dL Albumin (3.5-5.0) g/dL Urine Color YELLOW Urine Appearance CLEAR Urine pH 7.0 (5.0-8.0) Ur Specific [place] 1.020 (1.005-1.025) Urine Protein NEG (NEG-TRACE) MG/DL Urine Glucose (UA) NEG (NEG) MG/DL Urine Ketones NEG (NEG) MG/DL Urine Blood NEG (NEG) Urine Nitrite NEG (NEG) Ur Leukocyte Esterase NEG (NEG) Salicylates (15-30) mg/dL Urine Opiates Screen POSITIVE H (Not Detect) Urine Fentanyl Screen POSITIVE H (Not Detect) Acetaminophen (<30) mcg/mL Ur Barbiturates Screen Not Detected (Not Detect) Ur Phencyclidine Scrn Not Detected (Not Detect) Ur Amphetamines Screen Not Detected (Not Detect) U Benzodiazepines Scrn POSITIVE H (Not Detect) Urine Cocaine Screen POSITIVE H (Not Detect) U Marijuana (THC) Screen Not Detected (Not Detect) Ethyl Alcohol mg/dL COVID-19 (JEWELS) Negative (Negative) COVID-19 Clin Com See Note Influenza Type A (JACOB) Influenza Type B (JACOB) Influenza A & B Note 12/21/21 12/21/21 12/21/21 Range/Units 19:16 19:16 19:16 WBC 4.5 L (4.8-10.8) X10*3/uL RBC 4.33 L (4.60-5.80) X10*6/uL Hgb 11.6 L (14.0-18.0) g/dl Hct 37.5 L (42.0-52.0) % MCV 86.6 (80.0-98.0) fL MCH 26.8 L (27.0-33.0) pg MCHC 30.9 L (31.0-36.0) g/dl RDW 13.4 (11.0-16.0) % Plt Count 76 L (160-400) X10*3/uL MPV 10.7 (9.4-12.4) fL Immature Gran % (Auto) 0.2 (0.0-0.4) % Neut % (Auto) 74.4 H (45-73) % Lymph % (Auto) 18.6 L (20-40) % [place] % (Auto) 6.2 (2-11) % Eos % (Auto) 0.4 (0-4) % Baso % (Auto) 0.2 (0-2) % Lymph # (Auto) 0.8 L (1.2-4.9) X10*3/uL [place] # (Auto) 0.3 (0.1-1.2) X10*3/uL Eos # (Auto) 0.0 (0.0-0.4) X10*3/uL Baso # (Auto) 0.0 (0.0-0.2) X10*3/uL Abs Immat Gran (auto) 0.01 (0.00-0.03) X10*3/uL Absolute Neuts (auto) 3.4 (2.0-8.3) x10*3/uL Absolute Nucleated RBC 0.000 (0.0-0.012) X10*3/uL Nucleated RBC % (auto) 0.0 (0.0-0.2) /100WBC Smear Tech's Comments VERIFIED Sodium 136 (135-145) mmol/L Potassium 4.0 (3.3-5.1) mmol/L Chloride 101 (96-108) mmol/L Carbon Dioxide 26 (22-29) mmol/L Anion Gap 13 (12-20) BUN 18 H (9-16) mg/dL Creatinine 0.93 (0.5-1.4) mg/dL Estim Creat Clear Calc 116.0 Estimated GFR > 60 Random Glucose 145 H D (60-115) mg/dL Lactic Acid (0.5-2.0) mmol/L Calcium 9.3 (8.4-10.2) mg/dL Total Bilirubin 0.5 (0.0-1.0) mg/dL Direct Bilirubin 0.2 (0.0-0.5) mg/dL AST 32 (5-37) U/L ALT 35 (0-40) U/L Alkaline Phosphatase 115 D (39-117) U/L Total Creatine Kinase 76 (38-174) U/L Total Protein 8.4 H (6.5-8.0) g/dL Albumin 4.1 (3.5-5.0) g/dL Urine Color Urine Appearance Urine pH (5.0-8.0) Ur Specific [place] (1.005-1.025) Urine Protein (NEG-TRACE) MG/DL Urine Glucose (UA) (NEG) MG/DL Urine Ketones (NEG) MG/DL Urine Blood (NEG) Urine Nitrite (NEG) Ur Leukocyte Esterase (NEG) Salicylates < 5.0 L (15-30) mg/dL Urine Opiates Screen (Not Detect) Urine Fentanyl Screen (Not Detect) Acetaminophen < 1 (<30) mcg/mL Ur Barbiturates Screen (Not Detect) Ur Phencyclidine Scrn (Not Detect) Ur Amphetamines Screen (Not Detect) U Benzodiazepines Scrn (Not Detect) Urine Cocaine Screen (Not Detect) U Marijuana (THC) Screen (Not Detect) Ethyl Alcohol < 10 mg/dL COVID-19 (JEWELS) (Negative) COVID-19 Clin Com Influenza Type A (JACOB) Influenza Type B (JACOB) Influenza A & B Note 12/21/21 12/21/2112/21/22 Range/Units 19:16 19:16 19:33 WBC (4.8-10.8) X10*3/uL RBC (4.60-5.80) X10*6/uL Hgb (14.0-18.0) g/dl Hct (42.0-52.0) % MCV (80.0-98.0) fL MCH (27.0-33.0) pg MCHC (31.0-36.0) g/dl RDW (11.0-16.0) % Plt Count (160-400) X10*3/uL MPV (9.4-12.4) fL Immature Gran % (Auto) (0.0-0.4) % Neut % (Auto) (45-73) % Lymph % (Auto) (20-40) % [place] % (Auto) (2-11) % Eos % (Auto) (0-4) % Baso % (Auto) (0-2) % Lymph # (Auto) (1.2-4.9) X10*3/uL [place] # (Auto) (0.1-1.2) X10*3/uL Eos # (Auto) (0.0-0.4) X10*3/uL Baso # (Auto) (0.0-0.2) X10*3/uL Abs Immat Gran (auto) (0.00-0.03) X10*3/uL Absolute Neuts (auto) (2.0-8.3) x10*3/uL Absolute Nucleated RBC (0.0-0.012) X10*3/uL Nucleated RBC % (auto) (0.0-0.2) /100WBC Smear Tech's Comments Sodium (135-145) mmol/L Potassium (3.3-5.1) mmol/L Chloride (96-108) mmol/L Carbon Dioxide (22-29) mmol/L Anion Gap (12-20) BUN (9-16) mg/dL Creatinine (0.5-1.4) mg/dL Estim Creat Clear Calc Estimated GFR Random Glucose (60-115) mg/dL Lactic Acid 1.3 (0.5-2.0) mmol/L Calcium (8.4-10.2) mg/dL Total Bilirubin (0.0-1.0) mg/dL Direct Bilirubin (0.0-0.5) mg/dL AST (5-37) U/L ALT (0-40) U/L Alkaline Phosphatase (39-117) U/L Total Creatine Kinase (38-174) U/L Total Protein (6.5-8.0) g/dL Albumin (3.5-5.0) g/dL Urine Color Urine Appearance Urine pH (5.0-8.0) Ur Specific [place] (1.005-1.025) Urine Protein (NEG-TRACE) MG/DL Urine Glucose (UA) (NEG) MG/DL Urine Ketones (NEG) MG/DL Urine Blood (NEG) Urine Nitrite (NEG) Ur Leukocyte Esterase (NEG) Salicylates (15-30) mg/dL Urine Opiates Screen (Not Detect) Urine Fentanyl Screen (Not Detect) Acetaminophen (<30) mcg/mL Ur Barbiturates Screen (Not Detect) Ur Phencyclidine Scrn (Not Detect) Ur Amphetamines Screen (Not Detect) U Benzodiazepines Scrn (Not Detect) Urine Cocaine Screen (Not Detect) U Marijuana (THC) Screen (Not Detect) Ethyl Alcohol mg/dL COVID-19 (JEWELS) (Negative) COVID-19 Clin Com Influenza Type A (JACOB) Cancelled Negative Influenza Type B (JACOB) Cancelled Negative Influenza A & B Note Cancelled See Note Discharge Plan Discharge Clinical Impression: Polysubstance (including opioids) dependence, daily use Patient Disposition: Still a Patient Prescriptions: No Action metformin 1,000 mg tablet 1,000 mg PO BID Qty: 60 0RF cephalexin 500 mg capsule 500 mg PO QID 5 Days Qty: 20 0RF doxycycline hyclate 100 mg tablet 100 mg PO BID Qty: 10 0RF nitrofurantoin monohyd/m-cryst [Macrobid] 100 mg capsule 100 mg PO Q12H 7 Days Qty: 14 0RF Rx Instructions: must administer with a meal/food metformin 1,000 mg tablet 1,000 mg PO BID 5 Days Qty: 10 0RF buprenorphine-naloxone [Suboxone] 4-1 mg film 1 film sublingual DAILY 0RF
--- NOTE | 2021-12-21 14:24 | PC.NURSE ---
patient came in seemingly brought by to seek help apprently when they arrived patient was ambivalent about seeking treatment but expressed recently some thought to hurt self. soon after getting changed over patient was irritable and reluctantly compliant
--- NOTE | 2021-12-21 16:13 | PC.NURSE ---
wanders around unit, dropping water pitchers, states he cant void.
[2021-12-21 16:14] LABS: COVID-19 Test Negative (Negative)
--- NOTE | 2021-12-21 16:54 | PC.NURSE ---
client refuse bladder scan
--- NOTE | 2021-12-21 16:54 | PC.NURSE ---
posturing towards staff when direction declined
[2021-12-21 18:01] LABS: Amphetamine Screen Urine Not Detected (Not Detect); Barbiturates, Urine Not Detected (Not Detect); Benzodiazepines Screen Urine POSITIVE (Not Detect); Cannabinoid Screen Urine Not Detected (Not Detect); Cocaine Screen Urine POSITIVE (Not Detect); Fentanyl, urine POSITIVE (Not Detect); Opiate Screen Urine POSITIVE (Not Detect); Phencyclidine Screen Urine Not Detected (Not Detect)
[2021-12-21 18:42] VITALS: BP 105/60; PULSE 112; TEMP 38.1; O2SAT 95
[2021-12-21 18:54] LABS: Appearance Urine CLEAR; Color Urine YELLOW; Glucose Urine UA NEG (NEG); Leukocyte Esterase Urine NEG (NEG); Nitrite Urine NEG (NEG); Urine Blood NEG (NEG); Urine Ketones NEG (NEG); Urine Protein NEG (NEG-TRACE)
[2021-12-21 19:19] VITALS: TEMP 38.1
[2021-12-21 19:32] LABS: Basophils Percent Auto 0.2 % (0-2); Eosinophils Percent Auto 0.4 % (0-4); PLT CLUMP 1; Red Cell Distribution Width 13.4 % (11.0-16.0); SCAN SMEAR FLAG 1
[2021-12-21 19:34] LABS: Hematocrit 37.5 % (42.0-52.0); Hemoglobin 11.6 g/dl (14.0-18.0); Imm Gran Abs Auto 0.01 X10*3/uL (0.00-0.03); Imm Gran Pct Auto 0.2 % (0.0-0.4); Lymphocytes Absolute Auto 0.8 X10*3/uL (1.2-4.9); Lymphocytes Percent Auto 18.6 % (20-40); MANUAL DIFF FLAG SCAN; Mean Corpuscular HGB Conc 30.9 g/dl (31.0-36.0); Mean Corpuscular Hemoglobin 26.8 pg (27.0-33.0); Mean Corpuscular Volume 86.6 fL (80.0-98.0); Mean Platelet Volume 10.7 fL (9.4-12.4); Monocytes Absolute Auto 0.3 X10*3/uL (0.1-1.2); Monocytes Percent Auto 6.2 % (2-11); Neutrophils Absolute Auto 3.4 x10*3/uL (2.0-8.3); Neutrophils Percent Auto 74.4 % (45-73); Red Blood Count 4.33 X10*6/uL (4.60-5.80)
[2021-12-21 19:37] LABS: Platelet Count 76 X10*3/uL (160-400); White Blood Count 4.5 X10*3/uL (4.8-10.8)
[2021-12-21 19:39] LABS: Lactic Acid 1.3 mmol/L (0.5-2.0)
[2021-12-21 19:40] LABS: Ethanol < 10 mg/dL
[2021-12-21 19:45] LABS: Alkaline Phosphatase 115 U/L (39-117)
[2021-12-21 19:55] LABS: SLIDE REVIEW VERIFIED
[2021-12-21 19:56] LABS: Acetaminophen LAB < 1 mcg/mL (<30); Alanine Aminotransferase 35 U/L (0-40); Albumin Level 4.1 g/dL (3.5-5.0); Anion Gap 13 (12-20); Aspartate Amino Transferase 32 U/L (5-37); Bilirubin Direct 0.2 mg/dL (0.0-0.5); Bilirubin Total 0.5 mg/dL (0.0-1.0); Blood Urea Nitrogen 18 mg/dL (9-16); Calcium 9.3 mg/dL (8.4-10.2); Carbon Dioxide 26 mmol/L (22-29); Chloride 101 mmol/L (96-108); Estimated Glomerular Filt Rate > 60; Glucose Random 145 mg/dL (60-115); Salicylate < 5.0 mg/dL (15-30); Sodium 136 mmol/L (135-145); Total Protein 8.4 g/dL (6.5-8.0)
[2021-12-21 19:58] LABS: IDNOW Serial# 55D5AD1C; Influenza A Negative (Negative); Influenza B2 Negative (Negative)
[2021-12-21 20:53] VITALS: TEMP 37.4
[2021-12-21] MEDS: LORazepam 1 MG TABLET 2 MG PO (21:23)
[2021-12-21] MEDS: HaloperidoL 5 MG TABLET PO (21:24)
[2021-12-21 21:46] LABS: C Reactive Protein 1.59 mg/dL (< or = 0.50)
[2021-12-21 22:18] LABS: Erythrocyte Sedimentation Rate 36 MM/HR (0-15)
[2021-12-22 05:22] VITALS: BP 106/64; PULSE 88; RESP 14; O2SAT 96
--- NOTE | 2021-12-22 06:03 | PC.NURSE ---
Patient slept through the night, no distress observed/reported, Chest X-ray negative, CT negative, Afebrile at this time, [facility] referral completed/confirmed/pending ETA, VSS, med rec completed/pending provider approval, behavior non concerning at this time, VSS, will continue to monitor.
--- NOTE | 2021-12-22 07:20 | PC.NURSE ---
patient appears to remain asleep at present respirations are even and unlabored patient appears in no distress
[2021-12-22 08:45] VITALS: BP 127/79; PULSE 88; RESP 18; O2SAT 97
[2021-12-22 08:53] VITALS: RESP 17; TEMP 36.6
[2021-12-22] MEDS: metFORMIN HCl 1,000 MG TABLET 1000 MG PO (10:59)
[2021-12-22] MEDS: Buprenorphine/Naloxone 4/1 mg FILM 1 FILM SUBLINGUAL (10:59)
--- NOTE | 2021-12-22 12:59 | PC.NURSE ---
client had corrected me with admin of suboxone saying he should be on 04/17 films BID which i had verified meds yesterday and apparently made an error however client quickly fell asleep upon administration of one 12/15 fillm. notified provider of this.
== END 2021-12-22 13:49 | disposition home or self-care (01) ==
PROVIDERS: Nurse Practitioner Family; Emergency Provider Emergency Medicine Emergency Medical Services
DX: F19.20 Other psychoactive substance dependence, uncomplicated (principal); F11.20 Opioid dependence, uncomplicated; R41.82 Altered mental status, unspecified; R45.851 Suicidal ideations; R50.9 Fever, unspecified; R45.1 Restlessness and agitation; F31.9 Bipolar disorder, unspecified; E11.9 Type 2 diabetes mellitus without complications; Z20.822 Contact with and (suspected) exposure to COVID-19; Z79.899 Other long term (current) drug therapy
CPT/HCPCS: 36415; 70450; 71046; 80048; 80076; 80143; 80179; 80307; 81003; 82077; 82550; 83605; 85025; 85652; 86140; 87040; 87502; 87635; 99284

== ENCOUNTER 2022-05-09 20:24 | Emergency (ER) | payer MEDICAID, SELFPAY ==
[2022-05-09 21:03] VITALS: BP 148/76; PULSE 83; RESP 18; TEMP 37.2; O2SAT 98; BMI 33.7
== END 2022-05-10 04:56 | disposition home or self-care (01) ==
PROVIDERS: Emergency Provider Emergency Medicine; PCP Internal Medicine Geriatric Medicine
DX: L02.414 Cutaneous abscess of left upper limb (principal)
CPT/HCPCS: 10060; 99281; 99284